=== PATIENT | male | born 1970 | race Caucasian/White ===

== ENCOUNTER 2020-01-20 11:30 | Emergency (ER) | payer OTHER ==
[~2020-01-20] VITALS: Ht 170.2 cm; Wt 97.5 kg
[2020-01-20 11:34] VITALS: BP 1225/83; Ht 170.2 cm; Wt 97.5 kg
== END 2020-01-20 13:49 | disposition home or self-care (01) ==
LOC: ED 11:30
DX: S80.11XA Contusion of right lower leg, initial encounter (principal); W22.8XXA Striking against or struck by other objects, initial encounter; Y93.89 Activity, other specified; Y92.89 Other specified places as the place of occurrence of the external cause; Y99.8 Other external cause status